=== PATIENT | male | born 1970 ===

== ENCOUNTER 2021-06-25 09:53 | Emergency (ER) | payer OTHER ==
[2021-06-25] MEDS: Ibuprofen 600 MG Tab ONE (10:58)
[2021-06-25] MEDS: Lidocaine 1% with EPINEPHrine 1:100,000 20 ML MDV INJECT ONE (10:59)
[2021-06-25] MEDS: Lidocaine 1% with EPINEPHrine 1:100,000 20 ML MDV ONE (10:59)
[2021-06-25] MEDS: Ibuprofen 600 MG Tab PO ONE (11:00)
[2021-06-25] MEDS: Bacitracin/Neomycin/Polymyxin B Oint 0.9 GM U/D Packet TOP ONE (11:05)
[2021-06-25] MEDS: Bacitracin/Neomycin/Polymyxin B Oint 0.9 GM U/D Packet ONE (11:05)
--- NOTE | 2021-06-25 11:06 | EDM.PDOC ---
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 Patient was grinding a piece of metal, a small hand-held jewel grinder jerked back and hit himself in the chin/jaw area. There is a large gaping open laceration hemostasis achieved with direct pressure. Tetanus is up-to-date. No other injury. No tooth or jaw bone pain. No other injury. Treatments DESKTOP SUPPORT SPECIALIST: Reports: Dressing(s) Jaw Pain Score (Numeric/FACES): 3 - Related Data Allergies Allergy/AdvReac Type Severity Reaction Status Date / Time No Known Drug Allergies Allergy Cannot Verified 06/25/21 09:55 Remember Home Meds: Home Meds . [No Known Home Meds] 06/25/21 [History] ED ROS GENERAL - Review of Systems Review Of Systems: See Below Skin: Reports: Wound ED EXAM, SKIN/RASH Exam: See Below Exam Limited By: No Limitations General Appearance: Alert, WD/WN, No Apparent Distress Ears: Normal External Exam Nose: Normal Inspection Throat/Mouth: Normal Inspection, Normal Lips, Normal Teeth, Normal Gums, Normal Oropharynx, No Airway Compromise Head: Other (left facial laceration 5 cm) Neck: Normal Inspection, Supple, Non-Tender, Full Range of Motion Extremities: Normal Inspection, Normal Range of Motion Neurological: Alert Psychiatric: Normal Affect, Normal Mood Skin: Warm, Dry, Wound/Incision (5 cm linear laceration deep below his left lip going down to his chin.) ED SKIN PROCEDURES - Laceration/Wound Repair Left Face Appearance: Subcutaneous, Moderately Contaminated Anesthetic Type: Local Local Anesthesia - Lidocaine (Xylocaine): 1% with EPI Local Anesthetic Volume: Other (7 cm) Skin Prep: Providone-Iodine (Betadine), Saline, Sterile Drape Saline Irrigation (cc's): 500 Exploration/Debridement/Repair: Wound Explored, In a Bloodless Field, Explored to Base, Foreign Material Removed Closed with: Sutures Lac/Wound length In cm: 5 Suture Size: 5-0 # of Sutures: 8 Suture Type: Nylon, Simple Sterile Dressing Applied: Nurse Tetanus Status Addressed: Yes Complications: No Progress/Comments: Patient return for suture removal he understands not to leave them in too long. And take them out as instructed by a healthcare facility. Wound instructions provided to patient. Course - Vital Signs Last Recorded V/S: Last Vital Signs Temp 96.6 F L 06/25/21 10:00 Pulse 63 06/25/21 10:00 Resp 16 06/25/21 10:00 BP 92/57 L 06/25/21 10:00 Pulse Ox 97 06/25/21 10:00 - Orders/Labs/Meds Meds: Medications Discontinued Medications Generic Name Dose Route Start Last Admin Trade Name Jacinto PRN Reason Stop Dose Admin Ibuprofen Confirm 06/25/21 10:53 Ibuprofen 600 Mg Tab Administered 06/25/21 10:54 Dose 600 mg .ROUTE .STK-MED ONE Lidocaine/Epinephrine Confirm 06/25/21 10:00 Lidocaine 1% With Epinephrine 1:100,000 20 Ml Mdv Administered 06/25/21 10:01 Dose 20 ml .ROUTE .STK-MED ONE Neomycin/Polymyxin/Bacitracin Confirm 06/25/21 10:00 Bacitracin/Neomycin/Polymyxin B Oint 0.9 Gm U/D Packet Administered 06/25/21 10:01 Dose 1 each .ROUTE .STK-MED ONE Departure - Departure Time of Disposition: 10:58 Disposition: Home, Self-Care 01 Condition: Good Clinical Impression: Facial laceration Qualifiers: Encounter type: initial encounter Qualified Code(s): S01.81XA - Laceration without foreign body of other part of head, initial encounter - Discharge Information *PRESCRIPTION DRUG MONITORING PROGRAM REVIEWED*: No *COPY OF PRESCRIPTION DRUG MONITORING REPORT IN PATIENT MARIAELENA: No Instructions: Laceration Care, Adult, Sutures, Dar, or Adhesive Wound Closure, [id number] Referrals: Rhiannon Tyson MD [Primary Care Provider] - Additional Instructions: return here in 8 days for suture removal. do not wait any long for suture removal. avoid sun light, keep it clean and dry, apply topical antibiotic ointment on it. may cover when outside with band-aid. Sepsis Event Note (ED) - Evaluation Sepsis Screening Result: No Definite Risk - Focused Exam Vital Signs: Vital Signs Temp Pulse Resp BP Pulse Ox 06/25/21 10:00 96.6 F L 63 16 92/57 L 97
== END 2021-06-25 11:15 | disposition home or self-care (01) ==
LOC: KA.ED 09:53
DX: S01.81XA Laceration without foreign body of other part of head, initial encounter (principal); W26.8XXA Contact with other sharp object(s), not elsewhere classified, initial encounter; Y92.89 Other specified places as the place of occurrence of the external cause; Y99.0 Civilian activity done for income or pay
CPT/HCPCS: 12013; 99282-25; 99283; A9270-GY